=== PATIENT | female | born 2000 | race Caucasian/White ===

== ENCOUNTER 2023-01-17 21:07 | Emergency (ER) | payer MEDICAID ==
[~2023-01-17] VITALS: Ht 157.5 cm; Wt 92.0 kg
[~2023-01-17 21:07] MED LIST: ACET1TAB12 PO
[2023-01-17 22:43] LABS: BASOPHILS # (AUTO) 0.1 X10'3 (0-0.2); BASOPHILS % (AUTO) 0.7 % (0-1); EOSINOPHILS # (AUTO) 0.1 X10'3 (0-0.9); HEMATOCRIT 40.3 % (35.0-45.0); HEMOGLOBIN 13.3 g/dl (12.0-16.0); LYMPHOCYTES # (AUTO) 2.6 X10'3 (1.1-4.8); LYMPHOCYTES % (AUTO) 26.5 % (21-51); MEAN CORPUSCULAR HEMOGLOBIN 28.7 PG (27.0-31.0); MEAN CORPUSCULAR HGB CONC 33.1 g/dL (33.0-36.5); MEAN CORPUSCULAR VOLUME 86.8 FL (78-98); MEAN PLATELET VOLUME 6.8 FL (7.4-10.4); MONOCYTES # (AUTO) 0.5 X10'3 (0-0.9); MONOCYTES % (AUTO) 4.8 % (2-12); NEUTROPHILS # (AUTO) 6.6 X10'3 (1.8-7.7); PLATELET COUNT 347 X10'3 (140-440); RED BLOOD COUNT 4.65 X10'6 (4.20-5.60); RED CELL DISTRIBUTION WIDTH 14.5 % (11.5-14.5); WHITE BLOOD COUNT 9.8 X10'3 (4.5-11.0)
[2023-01-17 22:47] LABS: ALANINE AMINOTRANSFERASE 15 U/L (12-78); ALBUMIN/GLOBULIN RATIO 0.9 (1.1-1.5); ALKALINE PHOSPHATASE 82 IU/L (46-116); ANION GAP 8 (8-16); ASPARTATE AMINO TRANSFERASE 14 U/L (10-37); BILIRUBIN,TOTAL 0.3 MG/DL (0.1-1.0); BLOOD UREA NITROGEN 13 MG/DL (7-18); BUN/CREATININE RATIO 20.3 (6.6-38.0); CALCIUM 9.2 MG/DL (8.5-10.1); CHLORIDE 104 MMOL/L (99-107); CREATININE 0.64 MG/DL (0.40-0.90); GLUCOSE 92 MG/DL (70-104); SODIUM 138 MMOL/L (135-145); TOTAL CARBON DIOXIDE 26.1 MMOL/L (24-32); TOTAL PROTEIN 8.5 G/DL (6.4-8.2); eGFR > 90 ML/MIN
[2023-01-18] VITALS: BP 124/66
== END 2023-01-18 00:28 | disposition home or self-care (01) ==
LOC: ER 21:08
DX: R07.89 Other chest pain (principal); Z79.899 Other long term (current) drug therapy
CPT/HCPCS: 36415; 71045; 80053; 83880; 84484; 85025; 93005; 99285

== ENCOUNTER 2023-03-18 12:38 | Emergency (ER) | payer MEDICAID ==
[~2023-03-18] VITALS: Ht 157.5 cm; Wt 96.0 kg
[2023-03-18 12:51] VITALS: BP 134/79
[2023-03-18] MEDS ORDERED: ondansetron 4mg rapidly disintigrating tab PO ONE (14:00)
[2023-03-18] MEDS ORDERED: meclizine 12.5mg tablet PO ONE (14:00)
[2023-03-18] MEDS ORDERED: ONDA4TAB12 PO (14:15)
[2023-03-18] MEDS ORDERED: MECL-159 PO (14:15)
== END 2023-03-18 14:32 | disposition home or self-care (01) ==
LOC: ER 12:39
DX: R42 Dizziness and giddiness (principal)
CPT/HCPCS: 99283; J8597

== ENCOUNTER 2023-10-04 13:45 | Emergency (ER) | payer MEDICAID ==
[~2023-10-04] VITALS: Ht 154.9 cm; Wt 95.5 kg
[~2023-10-04 13:45] MED LIST changes: +MECL-302 PO; +ONDA4TAB12 PO
[2023-10-04] MEDS ORDERED: NAPR-56 PO (14:55)
[2023-10-04 15:28] VITALS: BP 116/53; PULSE 70; RESP 16; TEMP 99; O2SAT 99
== END 2023-10-04 15:32 | disposition home or self-care (01) ==
LOC: ER 13:46
DX: S93.492A Sprain of other ligament of left ankle, initial encounter (principal); Z79.899 Other long term (current) drug therapy; X50.1XXA Overexertion from prolonged static or awkward postures, initial encounter; Y93.89 Activity, other specified; Y92.89 Other specified places as the place of occurrence of the external cause; Y99.8 Other external cause status
CPT/HCPCS: 73610; 99284